=== PATIENT | female | born 1970 | race Hispanic/Latino ===

== ENCOUNTER 2018-11-07 09:07 | Outpatient (CLI) | payer MEDICARE | END 2018-11-07 09:08 | disposition home or self-care (01) | LOC: C.LAB 09:07 | DX: Z00.00 Encounter for general adult medical examination without abnormal findings (principal); E11.9 Type 2 diabetes mellitus without complications ==

== ENCOUNTER 2018-11-23 10:27 | Outpatient (CLI) | payer MEDICARE | END 2018-11-23 10:28 | disposition home or self-care (01) | LOC: C.USIC 10:27 ==

== ENCOUNTER 2019-01-10 09:46 | Outpatient (CLI) | payer MEDICARE | END 2019-01-10 09:47 | disposition home or self-care (01) | LOC: C.LAB 09:46 ==